=== PATIENT | female | born 1975 | race Caucasian/White ===

== ENCOUNTER → 2018-01-18 10:32 | Outpatient (CLI) | payer BC, SELFPAY | PROVIDERS: Family Provider Family Medicine; PCP Family Medicine; Visit Provider Nurse Practitioner Women's Health | DX: Z12.31 Encounter for screening mammogram for malignant neoplasm of breast (principal) | CPT/HCPCS: 77063; 77067 ==

== ENCOUNTER → 2018-02-02 16:15 | Outpatient (CLI) | payer BC, SELFPAY ==
[2018-02-08 08:51] LABS: HPV APTIMA, High Risk Negative (Negative)
== END ==
PROVIDERS: Family Provider Family Medicine; PCP Family Medicine; Visit Provider Nurse Practitioner Women's Health
DX: Z12.4 Encounter for screening for malignant neoplasm of cervix (principal)
CPT/HCPCS: 88175; G0145

== ENCOUNTER → 2019-02-01 12:24 | Outpatient (CLI) | payer BC, SELFPAY ==
--- NOTE | 2019-02-01 12:27 | BI_ITS ---
MAMMOGRAPHY - BILATERAL SCREENING REASON FOR EXAM: Female, 43 years old. Routine annual screening examination. PERTINENT HISTORY: Mother with breast cancer. TECHNIQUE: Digital bilateral breast khoi (3D mammographic acquisition) in the CC and MLO projections. 2-D mediolateral oblique (MLO) and craniocaudad (CC) views of both breasts were obtained. CAD: Full Field Digital Mammography with Computer Added Detection was performed. COMPARISON: Comparison is made with prior examination of January 18, 2018 and December 23, 2016. FINDINGS: Breast Composition: The breasts are heterogeneously dense, which may obscure small masses. There are no dominant masses or suspicious calcifications. No other significant abnormalities are identified. There has been no significant change since the prior study. BI/SCREEN MAMM (CAD) W/KOHI BILAT IMPRESSION: Stable bilateral screening mammogram. Yearly follow-up mammogram recommended. (A) ASSESSMENT CATEGORY: BIRADS Category 1: Negative. A letter regarding these results will be sent to the patient by the facility within 30 days. Approximately 10% of breast cancers are not detected by mammography. A normal mammogram should not delay biopsy of a clinically suspicious abnormality. [id number] Electronically Signed: Rafiq Acosta, at 15:10 EDT , Service support ,
== END ==
PROVIDERS: Family Provider Family Medicine; PCP Family Medicine; Referring Provider Nurse Practitioner Women's Health; Visit Provider Nurse Practitioner Women's Health
DX: Z12.31 Encounter for screening mammogram for malignant neoplasm of breast (principal); Z80.3 Family history of malignant neoplasm of breast
CPT/HCPCS: 77063; 77067

== ENCOUNTER → 2019-09-27 11:41 | Outpatient (CLI) | payer BC, SELFPAY ==
[2019-09-27 11:27] VITALS: BMI 28.4
[2019-09-27 11:56] LABS: Absolute Lymphocyte Count 2.38 X10^3/uL (0.83-4.51); Absolute Neutrophil Count 3.2 X10^3/uL (2.0-7.7); Basophil# 0.04 X10^3/uL; Basophil% 0.6 % (0-1); Eosinophil# 0.68 X10^3/uL; Hematocrit 42.3 % (37-47); Hemoglobin 13.9 g/dL (12.0-15.0); Lymphocyte # 2.38 X10^3/ul (4.0); Lymphocyte % 34.9 % (19-41); Mean Corp Hgb Conc 32.9 g/dL (32-36); Mean Corpuscular Hgb 29.2 pg (27.0-32.0); Mean Corpuscular Volume 88.9 fL (81-99); Mean Platelet Vol. 9.1 fl (6.2-12.0); Monocyte# 0.47 X10^3/uL; Monocyte% 6.9 % (0-10); NRBC Flagged by Analyzer 0 % (0-5); Neutrophil # 3.23 X10^3/uL (2.7-7.7); Neutrophil % 47.3 % (47-70); Platelet Count 171 K/mm3 (150-450); RBC Distribution Width CV 12.3 % (11.6-14.6); RBC Distribution Width SD 39.8 fl (35.1-43.9); Red Blood Count 4.76 M/mm3 (4.2-5.4); White Blood Count 6.8 K/mm3 (4.4-11.0)
[2019-09-27 12:56] LABS: Thyroid Stim Hormone (TSH) 1.13 uIU/mL (0.358-3.74)
== END ==
PROVIDERS: PCP Family Medicine; Referring Provider Nurse Practitioner Women's Health; Visit Provider Nurse Practitioner Women's Health
DX: N92.1 Excessive and frequent menstruation with irregular cycle (principal)
CPT/HCPCS: 36415; 84443; 85025

== ENCOUNTER → 2019-10-02 13:53 | Outpatient (CLI) | payer BC, SELFPAY ==
[2019-09-27 11:27] VITALS: BMI 28.4
--- NOTE | 2019-10-02 13:54 | US_ITS ---
STUDY: ULTRASOUND OF THE FEMALE PELVIS - COMPLETE REASON FOR EXAM: Female, 44 years old. Bleeding TECHNIQUE: Transabdominal and Transvaginal TECHNICAL QUALITY: Adequate. COMPARISON: None. FINDINGS: The uterus is anteverted and is in a midline position. The uterus measures 10.0 x 7.4 x 5.9 cm. There is a nabothian cyst in the cervix. The endometrium measures 8 mm in thickness, and is hyperechoic. There is no demonstrated endometrial mass. There are 2 fibroids in the uterus, measuring 3.9 x 3.4 x 2.5 cm and 1.3 x 1.2 x 1.2 cm. The right ovary is visualized. The right ovary measures 2.9 x 2.4 x 1.30 cm. There is a 2.0 x 1.8 cm cyst in the right ovary. There is no visualized right adnexal mass or complex lesion. There is normal arterial and normal venous vascularity. The left ovary is visualized. The left ovary measures 3.6 x 3.5 x 2.2 cm. There is no left ovarian cyst or ovarian mass. There is no visualized left adnexal mass or complex lesion. There is normal arterial and normal venous vascularity. There is no fluid in the cul-de-sac. US/Transvaginal Non- IMPRESSION: 2 fibroids in the uterus with the larger measuring 3.9 cm. 2.0 cm simple cyst in the right ovary. Otherwise, unremarkable pelvic ultrasound. Electronically Signed: Lorenzo Liz, at 16:46 EDT Tel , Service support ,
--- NOTE | 2019-10-02 13:54 | US_ITS ---
STUDY: ULTRASOUND OF THE FEMALE PELVIS - COMPLETE REASON FOR EXAM: Female, 44 years old. Bleeding TECHNIQUE: Transabdominal and Transvaginal TECHNICAL QUALITY: Adequate. COMPARISON: None. FINDINGS: The uterus is anteverted and is in a midline position. The uterus measures 10.0 x 7.4 x 5.9 cm. There is a nabothian cyst in the cervix. The endometrium measures 8 mm in thickness, and is hyperechoic. There is no demonstrated endometrial mass. There are 2 fibroids in the uterus, measuring 3.9 x 3.4 x 2.5 cm and 1.3 x 1.2 x 1.2 cm. The right ovary is visualized. The right ovary measures 2.9 x 2.4 x 1.30 cm. There is a 2.0 x 1.8 cm cyst in the right ovary. There is no visualized right adnexal mass or complex lesion. There is normal arterial and normal venous vascularity. The left ovary is visualized. The left ovary measures 3.6 x 3.5 x 2.2 cm. There is no left ovarian cyst or ovarian mass. There is no visualized left adnexal mass or complex lesion. There is normal arterial and normal venous vascularity. There is no fluid in the cul-de-sac. US/Pelvic (Non ) IMPRESSION: 2 fibroids in the uterus with the larger measuring 3.9 cm. 2.0 cm simple cyst in the right ovary. Otherwise, unremarkable pelvic ultrasound. Electronically Signed: Lorenzo Liz, at 16:46 EDT Tel , Service support ,
== END ==
PROVIDERS: PCP Family Medicine; Visit Provider Nurse Practitioner Women's Health
DX: N92.1 Excessive and frequent menstruation with irregular cycle (principal)
CPT/HCPCS: 76830; 76856

== ENCOUNTER → 2019-10-04 15:00 | Outpatient (CLI) | payer BC, SELFPAY ==
--- NOTE | 2019-10-04 | EMB_PTH ---
PATIENT: LUIS M PIZARRO LOC: [facility] U#:[id number] AGE/SX: 50/F ROOM: RE10/04/[address]: MIKE Arreola : 1975 BED: DIS: SPEC #: [id number] RECD: 10/04/19 15:08 STATUS: ROMULO AURELIA #: [id number] NOA: 10/04/19 00:[address]: Marli Armando NP DEPT: SURGICAL PATHOLOGY RECD BY: Annette Coffey ENTERED: 10/05/19 09:06 SP TYPE: ENDOM BX/C RODOLFO DR: Dr. Rock Chand MD Tissues: Endometrium, NOS Procedures: Surgery Specimen Level IV HEADER OPERATION: Endometrial biopsy and endocervical polyp PRE-OP DIAGNOSIS: Abnormal uterine bleeding TISSUE SUBMITTED: Endometrial lining MICROSCOPIC DIAGNOSIS Endometrial biopsy: Secretory endometrium. A fragment of benign endocervical polyp. Fragments of benign endocervical mucosa. SJ:moriah 10/09/19 MICROSCOPIC DESCRIPTION Slides are reviewed. GROSS DESCRIPTION Received is one container labeled with the patient's name and not further designated. The specimen consists of multiple fragments of hemorrhagic soft tissue that in aggregate measure 3 x 2.5 x 0.2 cm. The entire specimen is submitted in one cassette. / DEBO:moriah 10/05/19 TC:5 CPT: 04930
[2019-10-04 10:58] VITALS: BMI 31.3
== END ==
PROVIDERS: PCP Family Medicine; Referring Provider Nurse Practitioner Women's Health; Visit Provider Nurse Practitioner Women's Health
DX: N93.9 Abnormal uterine and vaginal bleeding, unspecified (principal)
CPT/HCPCS: 88305

== ENCOUNTER → 2020-02-13 14:12 | Outpatient (CLI) | payer BC, SELFPAY ==
[2019-10-04 10:58] VITALS: BMI 31.3
--- NOTE | 2020-02-13 14:12 | BI_ITS ---
MAMMOGRAPHY - BILATERAL SCREENING REASON FOR EXAM: Female, 44 years old. Routine annual screening examination. PERTINENT HISTORY: Mother with breast cancer. TECHNIQUE: Digital bilateral breast khoi (3D mammographic acquisition) in the CC and MLO projections. 2-D mediolateral oblique (MLO) and craniocaudad (CC) views of both breasts were obtained. CAD: Full Field Digital Mammography with Computer Added Detection was performed. COMPARISON: Comparison is made with prior study dated 02/01/2019 and 02/12/2018. FINDINGS: Breast Composition: The breasts are heterogeneously dense, which may obscure small masses. There are no dominant masses or suspicious calcifications. Stable benign-appearing left axillary lymph nodes. No other significant abnormalities are identified. There has been no significant change since the prior study. BI/SCREEN MAMM (CAD) W/KHOI BILAT IMPRESSION: Stable bilateral screening mammogram. Yearly follow-up mammogram recommended. (A) ASSESSMENT CATEGORY: BIRADS Category 2: Benign. A letter regarding these results will be sent to the patient by the facility within 30 days. Approximately 10% of breast cancers are not detected by mammography. A normal mammogram should not delay biopsy of a clinically suspicious abnormality. [id number] Electronically Signed: Rafiq Acosta, at 15:19 EDT , Service support ,
== END ==
PROVIDERS: PCP Family Medicine; Referring Provider Nurse Practitioner Women's Health; Visit Provider Nurse Practitioner Women's Health
DX: Z12.31 Encounter for screening mammogram for malignant neoplasm of breast (principal); Z80.3 Family history of malignant neoplasm of breast
CPT/HCPCS: 77063; 77067

== ENCOUNTER → 2020-05-08 10:47 | Outpatient (CLI) | payer BC, SELFPAY ==
[2019-10-04 10:58] VITALS: BMI 31.3
[2020-05-08 12:34] LABS: Anion Gap 5 (5-15); BUN 10 mg/dL (7-18); BUN/Creat Ratio 11.3 RATIO (10-20); Calcium,Total 8.9 mg/dL (8.5-10.1); Chloride 108 mmol/L (98-107); Cholesterol 148 mg/dL (200); Creatinine, Serum 0.88 mg/dL (0.55-1.02); EST Glomerular Filtration Rate 73 mL/min (>60); Est Glom Filt Rate - Afr Amer 88 mL/min (>60); Glucose 87 mg/dL (74-106); High Density Lipoprotein 59 mg/dL; Potassium 4.2 mmol/L (3.5-5.1); Sodium Level 141 mmol/L (136-145); Triglycerides 56 mg/dL; Very Low Density Lipoprotein 11 mg/dL (5-40)
== END ==
PROVIDERS: PCP Family Medicine; Referring Provider Family Medicine; Visit Provider Family Medicine
DX: Z13.1 Encounter for screening for diabetes mellitus (principal); Z13.220 Encounter for screening for lipoid disorders
CPT/HCPCS: 36415; 80048; 80061

== ENCOUNTER 2020-08-05 05:49 | Day surgery (SDC) | payer BC, SELFPAY ==
[2020-06-25 08:53] VITALS: BMI 31.4
[2020-07-24 15:18] VITALS: BMI 30.9
--- NOTE | 2020-07-24 16:19 | PCM.HPOB.BLA ---
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 Is patient in pain?: No Allergies No Known Allergies Allergy (Verified 07/24/20 15:18) Medications escitalopram oxalate 10 mg tablet 10 mg PO DAILY 02/02/18 [History Confirmed 07/24/20] montelukast 10 mg tablet 10 mg PO QPM 02/02/18 [History Confirmed 07/24/20] Post menopausal: No Patient : No : [facility] Medical History Seasonal allergies (Chronic) Asthma (Chronic) Depression with anxiety (Acute) Surgical History S/P appendectomy (Resolved) Tubal ligation status (Resolved) Family History Mother Breast cancer Hypertension Father Myocardial infarction Hypertension Prostate cancer Social History (Updated 07/24/20 @ 16:[address] Kathy Blount MD) Smoking Status: Former smoker alcohol intake: current details: occasionally substance use type: does not use caffeine: Yes what type of physical activity do you participate in: walking frequency: 1-2 times per week seatbelt use: always do you feel safe at home: Yes additional social history: [id number] Patient is an bank accountant HPI D&C, ablation: Details: LUIS M PIZARRO is a 45 year old who presents for preop visit for hysteroscopy, D&C, endometrial ablation. Continues to have abnormal uterine bleeding. Had bleeding for 3 weeks followed by 2 weeks off followed by two additional weeks. Pregancy History 2 Elective abortions Hx Para 2 Spontaneous abortions Hx # Term Pregnancies Ectopic pregnancies Hx # Pregnancies Multiple births # of living children Past Pregnancies Del. Date Name GA/Weeks Outcome Route Bth Weight Gen Labor Lgth Anesthesia Del Locatn Provider FOB Unknown Citlali-1996 Unknown Dany-1998 ROS Const Constitutional: Reports system reviewed and no additional complaints, except as docu; denies chills or fever(s) Eyes Eyes: Reports system reviewed and no additional complaints, except as docu ENT ENT: Reports system reviewed and no additional complaints, except as docu Cardio Card: Reports system reviewed and no additional complaints, except as docu; denies chest pain, leg swelling or rapid, pounding, or irregular heartbeat Resp Resp: Reports system reviewed and no additional complaints, except as docu; denies dyspnea GI GI: Reports system reviewed and no additional complaints, except as docu; denies constipation, nausea or vomiting : Reports system reviewed and no additional complaints, except as docu; denies painful urination, pelvic pain, urinary frequency, urinary hesitancy, urinary urgency, vaginal discharge, vaginal odor or vaginal itching Musc Musc: Reports system reviewed and no additional complaints, except as docu Skin Skin/Breast: Reports system reviewed and no additional complaints, except as docu Neuro Neuro: Reports system reviewed and no additional complaints, except as docu Psych Psych: Reports system reviewed and no additional complaints, except as docu Endo Endo: Reports system reviewed and no additional complaints, except as docu Exam Const General: cooperative, healthy appearing, comfortable, well developed, well groomed Orientation: alert, awake, oriented x3 Neck Neck: normal visual inspection, full ROM Resp Effort & Inspection: normal respiratory effort, able to speak in complete sentences, symmetric chest movement Cardio Rate: regular rate Skin General: no rashes or lesions noted, elasticity normal, turgor normal Lesions: no lesions Rashes: no rashes Neuro General: alert, awake, oriented x3 Cranial Nerves: CN's II-XI intact bilaterally, PERRL, EOM intact bilaterally Cognition: normal cognition Speech: speech normal Gait: normal gait Extrem General: normal to inspection, full ROM, no pedal edema Psych Appearance: grossly normal Mental Status: mental status grossly normal Mood: congruent mood Affect: normal affect Speech and Movement: speech and movement normal Attitude: cooperative Thought Process: normal Thought Content: normal Assessment & Plan 1. Abnormal uterine bleeding (AUB) N93.9 Plan Presents for preop visit for endometrial ablation. Surgical consent reviewed with patient at prior visit. Denies further questions or concerns. Reviewed postop precautions and expectations. Reviewed past medical history and review of systems to ensure up-to-date. Consent signed with patient in the office for hysteroscopy, dilation and curettage, endometrial ablation.
[2020-08-05 06:27] VITALS: BP 119/73; PULSE 67; RESP 16; TEMP 36.7; O2SAT 96; BMI 31.6
[2020-08-05] MEDS: Lactated Ringers 1,000 ML 100 ML IV (06:44)
[2020-08-05 06:55] LABS: Hematocrit 43.1 % (37-47); Hemoglobin 14.1 g/dL (12.0-15.0); Mean Corp Hgb Conc 32.7 g/dL (32-36); Mean Corpuscular Volume 85.5 fL (81-99); Mean Platelet Vol. 9.8 fl (6.2-12.0); Platelet Count 164 K/mm3 (150-450); RBC Distribution Width CV 13.1 % (11.6-14.6); RBC Distribution Width SD 39.7 fl (35.1-43.9); Red Blood Count 5.04 M/mm3 (4.2-5.4); White Blood Count 4.9 K/mm3 (4.4-11.0)
--- NOTE | 2020-08-05 07:23 | DCINST_ITS ---
Discharge Diet: No Restrictions Discharge Activity: Return to Normal Activity, May Shower, May Take a Tub Bath - in 2 weeks. Allergies/Adverse Reactions: Allergies No Known Allergies Allergy (Verified 07/29/20 09:27) Medications to take at Discharge escitalopram oxalate 10 mg tablet 10 mg PO QHS 02/02/18 montelukast 10 mg tablet 10 mg PO QPM 02/02/18 Albuterol IH (ProAir) [Proair Hfa] 1 - 2 puff INHALATION Q6H PRN PRN 07/29/20 Ibuprofen [Motrin] 800 mg PO Q8H PRN PRN #60 tablet 08/05/20 The following prescriptions were given: Ibuprofen [Motrin] 800 mg PO Q8H PRN PRN #60 tablet PRN Reason: Pain Score 1-5 Transmission Status: Pending to [facility] Primary Care Physician: Titi Blount MD [Primary Care Provider] - Test Results: Test results from this visit will be discussed in further detail at your follow- up appointment, if applicable.
--- NOTE | 2020-08-05 07:30 | EMB_PTH ---
PATIENT: LUIS M PIZARRO LOC: [facility] [place] U#:[id number] AGE/SX: 45/F ROOM: RE08/05/[address]: Dr. Kathy Blount MD : 1975 BED: DIS: 08/05/2020 SPEC #: [id number] RECD: 08/05/20 12:29 STATUS: ROMULO MOSES #: [id number] NOA: 08/05/20 07:[address]: Kathy Blount DEPT: SURGICAL PATHOLOGY RECD BY: Yeny Savage ENTERED: 08/05/20 13:09 SP TYPE: ENDOM BX/C OTHR DR: Dr. Titi Blount MD Tissues: Endometrium, NOS Procedures: Surgery Specimen Level IV HEADER OPERATION: Hysteroscopy, D & C, endometrial ablation PRE-OP DIAGNOSIS: Abnormal uterine bleeding TISSUE SUBMITTED: Endometrial curettings MICROSCOPIC DIAGNOSIS Endometrium, curettings: Simple hyperplasia without atypia. AM:moriah 08/06/2020 COMMENT Case has been reviewed in consultation with Dr. Anna who concurs with the above diagnosis. IDC:DEBO MICROSCOPIC DESCRIPTION Slides are reviewed. GROSS DESCRIPTION Received in fixative is one container labeled with the patient's name and designated endometrial curettings. The specimen consists of multiple fragments of pink hemorrhagic soft tissue that in aggregate measure 7.5 x 3 x 0.3 cm. The specimen is totally submitted in three cassettes. / DEBO:moriah 08/05/20 TC:5 CPT: 21741
[2020-08-05] MEDS: Lidocaine 1% (30 ml sdv) 30 ML Vial (07:48)
[2020-08-05] MEDS: Lubricating Jelly 60 GM Tube 30 GM TOPICAL (07:48)
[2020-08-05 08:10] VITALS: BP 107/65; BP 119/73; PULSE 73; RESP 16; TEMP 36.4; O2SAT 93
--- NOTE | 2020-08-05 08:14 | OP.PCM_ITS ---
Problem List (1) Abnormal uterine bleeding (AUB) Status: Acute Report of Operation Date of Procedure: 08/05/20 Pre-Operative Diagnosis: Abnormal uterine bleeding Post-Operative Diagnosis: Same Surgery/Procedure Performed:: Hysteroscopy, D&C, endometrial ablation Description of Surgical Findings:: Uterus with polypoid appearing tissue. Normal-appearing uterine cavity. Normal cervix. associate director regulatory affairs: None Type of Anesthesia:: Local MAC Special Medications: 1% lidocaine Specimen's removed: Endometrial curettings Drains: Straight cath Estimated Blood Loss (mL): 10 Description of Procedure: Patient was taken to the operating where anesthesia with difficulty. She was prepped and draped in the dorsolithotomy position with yellowfin stirrups. A weighted speculum was placed in the posterior aspect of the vagina and the anterior lip of the cervix was grasped with a single-tooth tenaculum. Cervix was sequentially dilated to accommodate a 5 mm hysteroscope. The hysteroscope was introduced into the uterine cavity and the above findings were noted. The hysteroscope was then removed and a sharp curettage was performed. The total cavity length was found to be 6 cm. The Aimee device was inserted into the uterine cavity and seated within the cavity. Air was introduced to create a cervical seal and the seal was noted to be adequate. The Aimee device was activated and 2 safety checks were passed. The ablation was performed for 120 seconds. The Aimee device was removed from the uterine cavity. The tenaculum was removed and the cervix appeared hemostatic. All instruments were removed from the vagina. The patient was awakened from anesthesia and taken to recovery room in stable condition. - Complications None apparent - Admit VTE Documentation VTE Present on Admission: No VTE Mechan Device Prophylaxis: SCD's VTE Pharm Prophylaxis ordered?: No Multi Select Codes - Urinary/Genital Urinary/Genital CPT Codes: 24540 Aimee/Novasure, 57967 Hysteroscopy,EMC, Polypectomy
[2020-08-05 08:15] VITALS: BP 101/68; BP 119/73; PULSE 69; RESP 16; O2SAT 93
[2020-08-05 08:20] VITALS: BP 119/73; BP 99/67; PULSE 72; RESP 16; O2SAT 95
[2020-08-05 08:25] VITALS: BP 103/70; BP 119/73; PULSE 77; RESP 16; TEMP 36.2; O2SAT 94
[2020-08-05 09:14] VITALS: BP 119/73; BP 134/77; PULSE 65; RESP 16; TEMP 36.3; O2SAT 94
== END 2020-08-05 09:15 | disposition home or self-care (01) ==
LOC: SDC 05:50 → AC 05:50
PROVIDERS: PCP Family Medicine; Referring Provider Obstetrics & Gynecology; Visit Provider Obstetrics & Gynecology
PROC: 0U5B8ZZ Destruction of Endometrium, Via Natural or Artificial Opening Endoscopic (ICD-10-PCS; CPT 58558; principal; 2020-08-05 07:15)
DX: N93.9 Abnormal uterine and vaginal bleeding, unspecified (principal); N85.01 Benign endometrial hyperplasia; J45.909 Unspecified asthma, uncomplicated; F32.9 Major depressive disorder, single episode, unspecified; F41.9 Anxiety disorder, unspecified; Z20.822 Contact with and (suspected) exposure to COVID-19; Z87.891 Personal history of nicotine dependence
CPT/HCPCS: 00952; 58563; 85027; 86850; 86900; 86901; 87426; 88305; C9803; J7120; J2405

== ENCOUNTER → 2021-02-18 11:59 | Outpatient (CLI) | payer BC, SELFPAY ==
--- NOTE | 2021-02-18 12:03 | BI_ITS ---
MAMMOGRAPHY - BILATERAL SCREENING 3-D TOMOSYNTHESIS REASON FOR EXAM: Female, 45 years old. breast cancer screening PERTINENT HISTORY: No significant family history. TECHNIQUE: 2-D mammograms and 3-D Tomosynthesis of the breast (s) were performed. CAD was performed. COMPARISON: 02/13/2020 FINDINGS: The breast composition is heterogeneously dense that can obscure small breast masses. Scattered benign calcifications are seen. No dense spiculated masses or suspicious microcalcifications are identified. No architectural distortion is identified. There is no skin thickening or retraction. There has been no significant change since the prior study. BI/SCRN MAMM (CAD)W/KHOI BILAT IMPRESSION: No mammographic signs of malignancy. Routine yearly mammograms recommended. ASSESSMENT CATEGORY: BIRADS Category 1: Negative. A letter regarding these results will be sent to the patient by the facility within 30 days. FOLLOW UP RECOMMENDATION: Yearly follow up mammogram recommended. (A) Approximately 10% of breast cancers are not detected by mammography. A normal mammogram should not delay biopsy of a clinically suspicious abnormality. Electronically Signed: Bo Patricio MD at 13:27 EDT Tel , Service support ,
== END ==
PROVIDERS: PCP Family Medicine; Referring Provider Obstetrics & Gynecology; Visit Provider Obstetrics & Gynecology
DX: Z12.31 Encounter for screening mammogram for malignant neoplasm of breast (principal)
CPT/HCPCS: 77063; 77067

== ENCOUNTER → 2021-04-02 | Outpatient (CLI) | payer BC, SELFPAY | END | disposition home or self-care (01) | LOC: LABSPEC 04-03 09:10 | PROVIDERS: PCP Family Medicine; Visit Provider Family Medicine | DX: B34.9 Viral infection, unspecified (principal) | CPT/HCPCS: 87635; U0005; U0003 ==

== ENCOUNTER → 2021-12-09 | Outpatient (CLI) | payer BC, SELFPAY ==
[2021-12-11 22:07] LABS: Chlamydia By Nucleic Acid AMP Negative (Negative)
[2021-12-11 22:40] LABS: Gonococcus By Nucleic Acid AMP Negative (Negative)
== END | disposition home or self-care (01) ==
LOC: LABSPEC 12-10 08:18
PROVIDERS: Visit Provider Nurse Practitioner Women's Health
DX: N76.0 Acute vaginitis (principal); Z11.3 Encounter for screening for infections with a predominantly sexual mode of transmission
CPT/HCPCS: 87070; 87205; 87491; 87591

== ENCOUNTER → 2022-02-18 | Outpatient (CLI) | payer BC, SELFPAY ==
--- NOTE | 2022-02-18 10:39 | BI_ITS ---
MAMMOGRAPHY - BILATERAL SCREENING REASON FOR EXAM: Female, 46 years old. Routine annual screening examination. PERTINENT HISTORY: Mother with breast cancer. TECHNIQUE: Digital bilateral breast khoi (3D mammographic acquisition) in the CC and MLO projections. 2-D mediolateral oblique (MLO) and craniocaudad (CC) views of both breasts were obtained. CAD: Full Field Digital Mammography with Computer Added Detection was performed. COMPARISON: Comparison is made with prior study dated 02/18/2021 and 02/13/2020. FINDINGS: Breast Composition: The breasts are heterogeneously dense, which may obscure small masses. There are no dominant masses or suspicious calcifications. Stable small benign appearing bilateral axillary lymph nodes. No other significant abnormalities are identified. There has been no significant change since the prior study. BI/SCRN MAMM (CAD)W/KHIO BILAT IMPRESSION: Stable bilateral screening mammogram. Yearly follow-up mammogram recommended. (A) ASSESSMENT CATEGORY: BIRADS Category 2: Benign. A letter regarding these results will be sent to the patient by the facility within 30 days. Approximately 10% of breast cancers are not detected by mammography. A normal mammogram should not delay biopsy of a clinically suspicious abnormality. [id number] Electronically Signed: Rafiq Acosta MD at 12:35 EDT ,
== END | disposition home or self-care (01) ==
LOC: OPBI 10:38
PROVIDERS: Visit Provider Nurse Practitioner Women's Health
DX: Z12.31 Encounter for screening mammogram for malignant neoplasm of breast (principal); Z80.3 Family history of malignant neoplasm of breast
CPT/HCPCS: 77063; 77067

== ENCOUNTER → 2022-06-16 | Outpatient (CLI) | payer BC, SELFPAY ==
[2022-06-16 12:32] LABS: Absolute Lymphocyte Count 1.59 X10^3/uL (0.83-4.51); Absolute Neutrophil Count 3.2 X10^3/uL (2.0-7.7); Basophil# 0.03 X10^3/uL; Basophil% 0.6 % (0-1); Eosinophils% 1.9 % (0-5); Hematocrit 49.3 % (37-47); Hemoglobin 15.5 g/dL (12.0-15.0); Lymphocyte # 1.59 X10^3/ul (0.83-4.51); Lymphocyte % 30.2 % (19-41); Mean Corp Hgb Conc 31.4 g/dL (32-36); Mean Corpuscular Hgb 27.1 pg (27.0-32.0); Mean Corpuscular Volume 86.2 fL (81-99); Mean Platelet Vol. 9.9 fl (6.2-12.0); Monocyte# 0.35 X10^3/uL; Monocyte% 6.6 % (0-10); NRBC Flagged by Analyzer 0 % (0-5); Neutrophil # 3.19 X10^3/uL (2.7-7.7); Neutrophil % 60.5 % (47-70); Platelet Count 227 K/mm3 (150-450); RBC Distribution Width CV 12.3 % (11.6-14.6); RBC Distribution Width SD 38.6 fl (35.1-43.9); Red Blood Count 5.72 M/mm3 (4.2-5.4); White Blood Count 5.3 K/mm3 (4.4-11.0)
[2022-06-16 12:52] LABS: ALB/GLOB Ratio 1.1 RATIO (0.9-2.4); AST(SGOT) 17 U/L (15-37); Alanine Aminotransfer ALT/SGPT 18 U/L (13-56); Alkaline Phosphatase 83 U/L (45-117); Anion Gap 7 (5-15); BUN 12 mg/dL (7-18); BUN/Creat Ratio 12.2 RATIO (10-20); Calcium,Total 9.3 mg/dL (8.5-10.1); Chloride 105 mmol/L (98-107); Cholesterol 169 mg/dL (200); Creatinine, Serum 0.98 mg/dL (0.55-1.02); EST Glomerular Filtration Rate 64 mL/min (>60); Est Glom Filt Rate - Afr Amer 77 mL/min (>60); Globulin 3.8 g/dL (2.2-4.2); Glucose 101 mg/dL (74-106); High Density Lipoprotein 70 mg/dL; Potassium 4.5 mmol/L (3.5-5.1); Protein, Total 7.8 g/dL (6.4-8.2); Sodium Level 140 mmol/L (136-145); Thyroid Stim Hormone (TSH) 0.69 uIU/mL (0.358-3.74); Triglycerides 71 mg/dL; Very Low Density Lipoprotein 14 mg/dL (5-40)
[2022-06-16 13:21] LABS: Hemoglobin A1c 5.7 % (3.8-5.6)
== END | disposition home or self-care (01) ==
LOC: MTLAB 09:58
PROVIDERS: Family Medicine; PCP Pediatrics; Referring Provider Pediatrics; Visit Provider Pediatrics
DX: Z13.0 Encounter for screening for diseases of the blood and blood-forming organs and certain disorders involving the immune mechanism (principal); Z13.29 Encounter for screening for other suspected endocrine disorder; Z13.220 Encounter for screening for lipoid disorders
CPT/HCPCS: 36415; 80053; 80061; 83036; 84443; 85025

== ENCOUNTER → 2023-02-24 | Outpatient (CLI) | payer BC, SELFPAY ==
--- NOTE | 2023-02-24 10:42 | BI_ITS ---
MAMMOGRAPHY - BILATERAL SCREENING REASON FOR EXAM: Female, 47 years old. Routine annual screening examination. PERTINENT HISTORY: Mother with breast cancer. TECHNIQUE: Digital bilateral breast khoi (3D mammographic acquisition) in the CC and MLO projections. 2-D mediolateral oblique (MLO) and craniocaudad (CC) views of both breasts were obtained. CAD: Full Field Digital Mammography with Computer Added Detection was performed. COMPARISON: Comparison is made with prior examination February 18, 2022 and February 18, 2021. FINDINGS: Breast Composition: The breasts are heterogeneously dense, which may obscure small masses. There are no dominant masses or suspicious calcifications. Stable appearance of the small benign-appearing bilateral axillary lymph nodes. No other significant abnormalities are identified. There has been no significant change since the prior study. BI/SCRN MAMM (CAD)W/KHOI BILAT IMPRESSION: Stable bilateral screening mammogram. Yearly follow-up mammogram recommended. (A) ASSESSMENT CATEGORY: BIRADS Category 2: Benign. A letter regarding these results will be sent to the patient by the facility within 30 days. Approximately 10% of breast cancers are not detected by mammography. A normal mammogram should not delay biopsy of a clinically suspicious abnormality. [id number] Electronically Signed: Rafiq Acosta MD at 13:32 EDT ,
== END | disposition home or self-care (01) ==
LOC: OPBI 10:42
PROVIDERS: PCP Pediatrics; Referring Provider Nurse Practitioner Women's Health; Visit Provider Nurse Practitioner Women's Health
DX: Z12.31 Encounter for screening mammogram for malignant neoplasm of breast (principal); Z80.3 Family history of malignant neoplasm of breast
CPT/HCPCS: 77063; 77067

== ENCOUNTER → 2023-03-10 | Outpatient (CLI) | payer BC, SELFPAY ==
[2023-03-15 12:09] LABS: HPV APTIMA, High Risk Negative (Negative)
== END | disposition home or self-care (01) ==
PROVIDERS: PCP Family Medicine; Referring Provider Nurse Practitioner Women's Health; Visit Provider Nurse Practitioner Women's Health
DX: Z12.11 Encounter for screening for malignant neoplasm of colon (principal); Z80.0 Family history of malignant neoplasm of digestive organs
CPT/HCPCS: 87624; 88175; G0145

== ENCOUNTER → 2024-03-01 | Outpatient (CLI) | payer BC, SELFPAY ==
--- NOTE | 2024-03-01 12:03 | BI_ITS ---
MAMMOGRAPHY - BILATERAL SCREENING 3-D TOMOSYNTHESIS REASON FOR EXAM: Female, 48 years old. screening PERTINENT HISTORY: No significant family history. TECHNIQUE: 2-D mammograms and 3-D Tomosynthesis of the breast (s) were performed. CAD was performed. COMPARISON: 02/24/2023 FINDINGS: The breast composition is heterogeneously dense that can obscure small breast masses. Scattered benign calcifications are seen. No dense spiculated masses or suspicious microcalcifications are identified. No architectural distortion is identified. There is no skin thickening or retraction. There has been no significant change since the prior study. BI/SCRN MAMM (CAD)W/KHOI BILAT IMPRESSION: No mammographic signs of malignancy. Routine yearly mammograms recommended. ASSESSMENT CATEGORY: BIRADS Category 1: Negative. A letter regarding these results will be sent to the patient by the facility within 30 days. FOLLOW UP RECOMMENDATION: Yearly follow up mammogram recommended. (A) Approximately 10% of breast cancers are not detected by mammography. A normal mammogram should not delay biopsy of a clinically suspicious abnormality. Electronically Signed: Bo Patricio MD at 13:15 EDT ,
== END | disposition home or self-care (01) ==
LOC: OPBI 12:03
PROVIDERS: PCP Family Medicine; Referring Provider Nurse Practitioner Women's Health; Visit Provider Nurse Practitioner Women's Health
DX: Z12.31 Encounter for screening mammogram for malignant neoplasm of breast (principal)
CPT/HCPCS: 77063; 77067

== ENCOUNTER → 2024-03-13 | Outpatient (CLI) | payer BC, SELFPAY ==
[2024-03-13 17:29] LABS: Estradiol < 11.0 pg/mL
--- OUTSIDE RECORDS SUMMARY | 2024-03-13 19:56 | XMS RPT_ITS | CCD ---
Author Organization [facility] Care Team Providers Care Compass Operator Name Role Phone Prabha BISHOP, Marli Jasso Unavailable Ming JIMENEZ, Tiki Katz Unavailable [phone] Medications Completed/Discontinued Medications Medication Drug Class(es) Dates Sig (Normalized) Sig (Original) escitalopram 10 mg oral tablet (2 sources) Serotonin Reuptake Inhibitor Start: 12-15-2016 take 1 tablet by mouth once daily LEXAPRO 10 MG TABS One tablet by mouth daily ESCITALOPRAM OXALATE [id number] Marli Armando [employer] montelukast 10 mg oral tablet (2 sources) Leukotriene Receptor Antagonist Start: 12-15-2016 take 1 tablet by mouth once daily SINGULAIR 10 MG TABS One tablet by mouth daily MONTELUKAST SODIUM [id number] Marli Armando NP Drug Treatment Unknown - unknown (1 source) No information available. norethindrone acetate 5 mg oral tablet (2 sources) Progestin Start: 12-15-2016 AYGESTIN 5 MG TABS Take 2-3 times per day to control menses starting 12/23/16 NORETHINDRONE ACETATE [id number] Marli Armando [employer] Start: 12-15-2016 AYGESTIN 5 MG TABS Take 2-3 times per day to control menses starting 12/23/16 NORETHINDRONE ACETATE [id number] Marli Armando [employer] Problems Active Problems Problem Classification Problem Date Documented Date Episodic/Chronic Unclassified (1 source) Gynecologic examination ; Translations: [Encounter for gynecological examination (general) (routine) without abnormal findings] Onset: 12-15-2016 12-15-2016 Unclassified (2 sources) Screening mammography ; Translations: [Encounter for screening mammogram for malignant neoplasm of breast] Onset: 12-09-2016 12-13-2016 Past or Other Problems Problem Classification Problem Date Documented Da te Episodic/Chronic Other female genital disorders (2 sources) H/O: menorrhagia; Translations: [Personal history of other diseases of the female genital tract] Onset: 12-15-2016 12-15-2016 Episodic Results Test Name Value Interpretation Reference Range Facil ity Office Visit: est annualon 0 12-15-2016 Documentation of current medications (procedure) Done Invalid Interpretation Code [facility] Fall [facility] Protein mass conc Done [facility] Tobacco smoking status NHIS Never [facility] Tobacco smoking status NHIS Never smoker [facility] Tobacco use [facility] Never smoker Invalid Interpretation Code [facility] Vital Signs Date Time Vital Sign Value Performing Clinician Facility 12-15-2016 08:41-0400 BMI (Body Mass Index) 28.52 kg/m2 Marli Armando NP [facility] 12-15-2016 08:41-0400 Body Temperature 98.4 [degF] Marli Armando NP [facility] 12-15-2016 08:41-0400 BP Diastolic 78 mm[Hg] Marli Armando NP [facility] 12-15-2016 08:41-0400 BP Systolic 117 mm[Hg] Marli Armando NP [facility] 12-15-2016 08:41-0400 Height 165.1 cm Marli Armando NP [facility] 12-15-2016 08:41-0400 Pulse (Heart Rate) 69 /min Marli Armando NP [facility] 12-15-2016 08:41-0400 Respiratory Rate 16 /min Marli Armando NP [facility] 12-15-2016 08:41-0400 Weight 77.75 kg Marli Armando NP [facility] Procedures Date Procedure Procedure Detail Performing Clinician Start: 12-15-2016 Gynecologic examination Routine gynecological exam Tiki Lai MD Start: 12-09-2016 Screening mammography Mammogram yearly screening Tiki Lai MD Plan of Treatment Date Care Activity Detail Author Start: 12-15-2016 End: 12-15-2016 Appointment Appointment [facility] Start: 12-09-2016 End: 12-13-2016 Mammogram, screening Mammogram, Screening, both breasts [facility] Additional Source Comments FOR RECORDS PERTAINING TO PATIENTS WHO ARE OR HAVE BEEN ENROLLED IN A CHEMICAL DEPENDENCY/SUBSTANCEABUSE PROGRAM, SOME INFORMATION MAY BE OMITTED. This clinical summary was aggregated from multiple sources. Caution should be exercised in using it in the provision of clinical care. This summary normalizes information from multiple sources, and as a consequence, information in this document may materially change the coding, format and clinical context of patient data. In addition, data may be omitted in some cases. CLINICAL DECISIONS SHOULD BE BASED ON THE PRIMARY CLINICAL RECORDS. [facility] [employer] [facility]. provides no warranty or guarantee of the accuracy or completeness of information in this document.
== END | disposition home or self-care (01) ==
LOC: WOBLAB 15:48
PROVIDERS: PCP Family Medicine; Referring Provider Nurse Practitioner Women's Health; Visit Provider Nurse Practitioner Women's Health
DX: N85.01 Benign endometrial hyperplasia (principal)
CPT/HCPCS: 36415; 82670; 83001

== ENCOUNTER → 2024-07-20 | Outpatient (CLI) | payer OTHER, SELFPAY ==
[2024-07-20 11:00] LABS: Hemoglobin A1c 5.9 % (<=5.6)
[2024-07-20 11:07] LABS: ALB/GLOB Ratio 1.6 RATIO (0.9-2.4); AST(SGOT) 22 U/L (<=31); Alanine Aminotransfer ALT/SGPT 12 U/L (<=34); Albumin, Serum 4.6 g/dL (3.5-5.0); Alkaline Phosphatase 81 U/L (35-104); Anion Gap 13 (5-15); BUN 9 mg/dL (4-19); BUN/Creat Ratio 8.3 RATIO (10-20); Calcium,Total 8.2 mg/dL (7.6-11.0); Carbon Dioxide 24.8 mmol/L (21.0-32.0); Chloride 102 mmol/L (98-108); Cholesterol 152 mg/dL (<=200); Creatinine, Serum 1.07 mg/dL (0.70-1.20); EST Glomerular Filtration Rate 63 (>60); Globulin 2.9 g/dL (2.2-4.2); Glucose 103 mg/dL (70-99); High Density Lipoprotein 63 mg/dL; Low Density Lipoprotein Calc. 75 mg/dL; Potassium 4.5 mmol/L (3.3-5.1); Protein, Total 7.4 g/dL (5.9-8.4); Sodium Level 140 mmol/L (133-145); Total Bilirubin 1.65 mg/dL (0.00-1.30); Triglycerides 72 mg/dL; Very Low Density Lipoprotein 14 mg/dL (5-40); cholesterol:hdl ratio screen 2.43
== END | disposition home or self-care (01) ==
LOC: MTLAB 08:45
PROVIDERS: PCP Family Medicine; Referring Provider Family Medicine; Visit Provider Family Medicine
DX: R73.03 Prediabetes (principal)
CPT/HCPCS: 36415; 80053; 80061; 83036

== ENCOUNTER 2024-07-25 08:08 | Day surgery (SDC) | payer OTHER, SELFPAY ==
[2024-07-25] VITALS (9 sets, daily range): BP systolic 85–112; BP diastolic 58–84; PULSE 74–88; RESP 16; TEMP 36.3–36.5; O2SAT 95–98; BMI 31.0
--- NOTE | 2024-07-25 08:27 | H&P.OPEN ---
[facility] - General General Date of Service: 07/25/24 HPI Narrative LUIS M PIZARRO, is a 49 F who presents for screening colonoscopy. Patient never had previous colonoscopy. Patient did have 2 maternal aunts with colon cancer?patient's mom did have colonoscopy. Patient has bowel movements about every 2 days denies any blood. Patient denies any chronic abdominal pain/nausea/vomiting/reflux. [facility] Medical History Depression Anxiety Alcohol use History of steroid therapy Non-smoker Hypertension Seasonal allergies Asthma Depression with anxiety Home Medications ?Medication ?Instructions ?Recorded ?Last Taken ?Type montelukast 10 mg tablet 10 mg PO QPM 02/02/18 Unknown History (Singulair) albuterol sulfate 90 mcg/actuation 1 - 2 puff inhalation Q6H PRN PRN 07/29/20 Unknown History aerosol inhaler Sob &/Or Wheezing phentermine 37.5 mg tablet 37.5 mg PO QDAY 06/11/24 07/24/24 History (Adipex-P) escitalopram oxalate 20 mg tablet 20 mg PO DAILY 07/24/24 Unknown History Allergy/AdvReac Type Severity Reaction Status Date / Time No Known Allergies Allergy Verified 07/25/24 08:19 Family History Mother Breast cancer Hypertension Father Myocardial infarction Hypertension Prostate cancer Aunt Colon cancer Aunts x2 Surgical History H/O dilation and curettage History of endometrial ablation Tubal ligation status S/P appendectomy Social History household members: spouse current occupational status: employed Smoking Status: Never smoker alcohol intake: current details: occasionally substance use type: does not use caffeine: Yes what type of physical activity do you participate in: walking frequency: 1-2 times per week seatbelt use: always do you feel safe at home: Yes additional social history: Lvwluqr-Qiv-Nfzmliozasv 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 Past Medical/Surgical History Planned Operation Planned Operative Procedure(s): Colonoscopy - Open Access S.O.S: No Previous Hospitalizations/Surgeries HX Hospitalizations: No HX of Surgeries: appendectomy as child tubal ligation dental work Any Problems With Anesthesia: No You/Your Family Experience Fever (Hyperthermia) With Anes: No Cholinesterase deficiency: No Cardiovascular Hx Chest Pain within Last 2 months: No Hx of Irregular Heartbeat and/or Afib: Yes (pvc's) Hx Heart Attack: No Hx Congestive Heart Failure: No Hx Rheumatic Fever: No Hx Hypertension: Yes (NO MEDS PRESENTLY PER PCP) Hx Internal Defibrillator: No Hx Pacemaker: No Hx Cardiac Catheterization: No Hx Cardiac Surgery/Stents/Etc.: No Hx Stress Test: No Hx Pain in Legs when Walking/Leg Cramps: No Respiratory Chronic Cough: No HX of Shortness of Breath: No Hoarseness: No Hx Chronic Obstructive Pulmonary Disease (COPD): No Hx Asthma: Yes (prn inhaler) Hx Emphysema: No Hx Sleep Apnea: No Hx Respiratory Tract Infection/Cold (presently): No Do You Snore Loudly (louder than talking or can be heard): No Do You Often Feel Tired/ Fatigued/ Sleepy Dring Daytime?: No Has Anyone Observed You Stop Breathing During Sleep?: No Result (for STOP score): Negative Hx Smoking: No Smoking Status: Never smoker Gastrointestinal Hx Gastrointestinal Disorders: No Hx Gastrointestinal Bleed: No Hx Ulcer: No Hx Hiatal Hernia: No Difficulty Chewing/Swallowing: No Special diet followed at home: No Hx Unplanned Weight Loss of 20#: No HX Unplanned Weight Gain of 20#: No Neurological Hx Seizures: No HX Syncope/Blackout Spells/Unconsciousness: No Hx Transient Ischemic Attacks (TIA): No Hx Multiple Sclerosis: No Hx Parkinson's Disease: No Hx Head/Neck Injury: No Hx Headaches: No Hx Back Injury/Pain: No Recent Onset of Speech Difficulty: No Restless Legs: No Does patient have nerve stimulator: No Blood Disorder Hx Leukemia: No Bleeding Tendencies: No Hx Deep Vein Thrombosis: No Hx High Cholesterol: No Blood Transmitted Disease: No Hx Hepatitis: No Hx Cirrhosis: No Hx Anemia: No Hx Blood Disorders: No Reproduction : No Is Patient Lactating: No Hx Hysterectomy: No Hx Tubal Ligation: Yes Are You Post Menopause: No Genitourinary Hx Renal Disease: No Musculoskeletal Hx Arthritis: No Hx Rheumatoid Arthritis: No Hx Gout: No Recent Onset of an Orthopedic Problem: No Endocrine Hx Diabetes: No Thyroid Disease: No Hx Steroid Therapy: No Psycho/Social Hx Substance Use: No Hx Alcohol Use: Yes (occ) Hx Anxiety: Yes (on med) Hx Depression: Yes (on med) Mental Illness: No Hx Dementia: No Miscellaneous Hx Cancer: No Recent Exposure to Contagious Disease: No Hx of C-Diff: No Any Loose Teeth: No Allergies No Known Allergies Allergy (Verified 07/25/24 08:19) Discharge Is Pt Admitted From a [facility], or a Custodial: No After D/C, Where Do you Plan to Go: Return Home Vital Signs Vital Signs Vital Signs: 07/25/24 08:23 07/25/24 08:23 Temperature 97.7 F L Temperature Source Temporal Pulse Rate 88 Respiratory Rate 16 Respiratory Pattern Normal Blood Pressure 112/84 H Blood Pressure Mean 93 Blood Pressure Source Monitor Blood Pressure Position Semi-Fowlers Blood Pressure Location Left Arm Pulse Ox 98 Oxygen Delivery Method Room Air Weight Weight: 180 lb 12.465 oz Body Mass Index (BMI) 31.0 Physical Exam Const alert, oriented x3 and no apparent distress HEENT normocephalic and head/scalp atraumatic Resp normal respiratory effort Cardio regular rate GI soft to palpation and non-tender; Negative for non-distended Palpation: Negative for guarding Extremity no clubbing, cyanosis or edema Skin no rashes or lesions noted Neuro CN's II-XII intact bilaterally Psych mental status grossly normal Assessment & Plan Assessment/Plan (1) Encounter for screening for malignant neoplasm of colon: Surgery Risks - Colonoscopy I discussed with the patient the risks of the procedure: Yes Risks Include but are not Limited To: Risks include but are not limited to: Bleeding, perforation requiring further surgery, inability to complete colonoscopy requiring barium enema.
--- NOTE | 2024-07-25 08:41 | PRE.ANES_ITS ---
ASA Classification* ASA Classification ASA Classification: 2 Assessment & Plan Anesthesia* Anesthesia Assessment Anesthesia Assessment: Discussed sedation and/or anesthesia options, risks, benefits, and alternatives with patient/parents/legal guardian/POA. Questions invited. The patient/parents/legal guardian/POA seems to understand and agrees to proceed with anesthesia plan. Reviewed the physical assessment, medical history, allergy history and patient home medications list prior to surgery/procedure/anesthetic and documented any changes. Performed airway and anesthesia risk assessments. Anesthesia Type Anesthesia Type: MAC Anesthesia Focused Assessment* Temperature: 97.7 F Pulse Rate: 88 Blood Pressure: 112/84 Respiratory Rate: 16 Pulse Ox: 98 Airway Assessment Mouth opens: >3 cm Mallampati Score: II Focused Labs Anesthesia Preop lab: CBC WBC 5.3 K/mm3 (4.4-11.0) 06/16/22 10:06/16/22 RBC 5.72 M/mm3 (4.2-5.4) H 06/16/22 10:06/16/22 Hgb 15.5 g/dL (12.0-15.0) H 06/16/22 10:00 3 Hct 49.3 % (37-47) H 06/16/22 10:00 06/16/22 Plt Count 227 K/mm3 (150-450) 06/16/22 10:00 06/16/22 CHEMISTRY Potassium 4.5 mmol/L (3.3-5.1) 07/20/24 08:50 07/20/24 Sodium 140 mmol/L (133-145) 07/20/24 08:50 07/20/24 BUN 9 mg/dL (4-19) 07/20/24 08:50 07/20/24 Creatinine 1.07 mg/dL (0.70-1.20) 07/20/24 08:50 07/20/24 Glucose 103 mg/dL (70-99) H 07/20/24 08:50 07/20/24 TSH 0.69 uIU/mL (0.358-3.74) 06/16/22 10:00 COAG Pre-Assessment Diagnosis/Proposed Procedure Planned Operative Procedure(s): Colonoscopy - Open Access Anesthesia History Anesthesia History - licensing coordinator: Anesthesia History - licensing coordinator Hx Hospitalization No 07/25/24 08:28 Any Problems With Anesthesia No 07/25/24 08:28 Cholinesterase deficiency No 07/25/24 08:28 You/Your Family Experience No 07/25/24 08:28 fever (hyperthermia) with Relationship Recent Exposure to Contagious No 07/25/24 08:28 Disease Does patient have nerve No 07/25/24 08:28 stimulator Patient instructed to have device shut off --Does patient have Pacemaker No 07/25/24 08:23 or ICD? When Was Last Pacemaker Check QUESTION #4 FULL TEXT: You/Your Family Experience fever (hyperthermia) with Anesthesia Last Oral Intake Last Oral intake: Last Oral Intake NPO since 05:00 07/25/24 08:23 Meds taken in AM with sips of No 07/25/24 08:23 water? Meds patient instructed to take am of surgery PONV PONV - licensing coordinator: PONV - licensing coordinator Female Yes 07/24/24 13:35 HX of Motion Sickness No 07/24/24 13:35 HX of N/V After Surgery No 07/24/24 13:35 Non-Smoker Yes 07/24/24 13:35 Duration of Surgery greater No 07/24/24 13:35 than 60 minutes Number of Risk Factors 2 07/24/24 13:35 PONV Score Moderate Risk 07/24/24 13:35 Height & Weight Height & Weight: Anesthesia: Height & Weight Height 5 ft 4 in 07/25/24 08:23 Weight: 82 kg 07/25/24 08:23 Body Mass Index (BMI) 31.0 07/25/24 08:23 Respiratory Assessment Respiratory Assessment - licensing coordinator: Respiratory Tract Infection Hx - licensing coordinator Hx Respiratory Tract Infection No 07/25/24 08:28 STOP Sleep Apnea STOP Sleep Apnea - licensing coordinator: STOP Sleep Apnea - licensing coordinator Hx Hypertension Yes: NO MEDS PRESENTLY PER 07/25/24 08:28 PCP Hx Sleep Apnea No 07/25/24 08:28 CPAP BIPAP Do you snore loudly (louder No 07/25/24 08:28 than talking or can be heard Do you often feel tired/ No 07/25/24 08:28 fatigued/ sleepy during daytime? Has anyone observed you stop No 07/25/24 08:28 breathing during sleep? STOP Results Negative 07/25/24 08:28 QUESTION #5 FULL TEXT : Do you snore loudly (louder than talking or can be heard through closed doors)? 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 Specify any problems Hx of Preganancy in last 3 No 07/24/24 13:35 Months Nurse Filling Out Transfusion VCHRISTIN 07/24/24 13:35 & Questions: Date: 07/24/24 07/24/24 13:35 Time: 13:36 07/24/24 13:35 Patient unable to answer at this time (ie. confused, unrespo /Reproduction History /Reproductive History - licensing coordinator: /Reproductive Hx- licensing coordinator Hx Now No 07/25/24 08:28 Gestational Age (in weeks): EDC: Hx Hx Para Hx Section SAB No 07/24/24 13:35 PFSH Medical History Depression Anxiety Alcohol use History of steroid therapy Non-smoker Hypertension Seasonal allergies Asthma Depression with anxiety Home Medications ?Medication ?Instructions ?Recorded ?Last Taken ?Type montelukast 10 mg tablet 10 mg PO QPM 02/02/18 Unknow n History (Singulair) albuterol sulfate 90 mcg/actuation 1 - 2 puff inhalati on Q6H PRN PRN 07/29/20 Unknown History aerosol inhaler Sob &/Or Wheezing phentermine 37.5 mg tablet 37.5 mg PO QDAY 06/11/24 History (Adipex-P) escitalopram oxalate 20 mg tablet 20 mg PO DAILY 03/11 /25 Unknown History Allergy/AdvReac Type Severity Reaction Status Date / Time No Known Allergies Allergy Verified 07/25/24 08:19 Family History Mother Breast cancer Hypertension Father Myocardial infarction Hypertension Prostate cancer Aunt Colon cancer Aunts x2 Surgical History H/O dilation and curettage History of endometrial ablation Tubal ligation status S/P appendectomy Social History household members: spouse current occupational status: employed Smoking Status: Never smoker alcohol intake: current details: occasionally substance use type: does not use caffeine: Yes what type of physical activity do you participate in: walking frequency: 1-2 times per week seatbelt use: always do you feel safe at home: Yes additional social history: Nrwruxl-Ejd-Bvodlxadedw 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
--- NOTE | 2024-07-25 09:30 | COLBX_PTH ---
PATIENT: LUIS M PIZARRO LOC: EN U#:[id number] AGE/SX: 49/F ROOM: RE07/25/[address]: Dr. Lizy Capps MD : 1975 BED: DIS: 07/25/2024 SPEC #: [id number] RECD: 07/25/24 12:11 STATUS: ROMULO AURELIA #: [id number] NOA: 07/25/24 09:[address]: Lizy Capps DEPT: SURGICAL PATHOLOGY RECD BY: Annette Coffey ENTERED: 07/25/24 13:04 SP TYPE: COLON BX OTHR DR: Jesica Keyes MD Tissues: Transverse colon Procedures: Surgery Specimen Level IV HEADER OPERATION: Colonoscopy PRE-OP DIAGNOSIS: Encounter for screening malignant neoplasm of colon TISSUE SUBMITTED: Transverse colon biopsy MICROSCOPIC DIAGNOSIS Transverse colon, biopsy: * Colonic mucosa with small mucosal lymphoid aggregate and prolapse features (deeper sections examined). MICROSCOPIC DESCRIPTION Slides are reviewed. GROSS DESCRIPTION Received in fixative is one container labeled with the patient's name and designated Transverse colon biopsy. The specimen consists of one irregular fragment of light cyr soft tissue that measures 0.3 x 0.3 x 0.1 cm. The specimen is totally submitted in one cassette. 07/25/2024 CPT:53647
--- NOTE | 2024-07-25 11:17 | OP.COLON_ITS ---
Patient Name: Viki Valenzuela Procedure Date: 07/25/2024 10:33 AM Date of : 1975 Age: 49 Procedure: Colonoscopy Indications: Screening for colorectal malignant neoplasm Providers: Lizy Capps MD Referring MD: Jesica Keyes Md Medicines: Monitored Anesthesia Care Patient Profile: This is a 49 year old female. Last Colonoscopy: none. The patient's first colonoscopy is today. Complications: No immediate complications. Procedure: Pre-Anesthesia Assessment: - Prior to the procedure, a History and Physical was performed, and patient medications and allergies were reviewed. The patient's tolerance of previous anesthesia was also reviewed. The risks and benefits of the procedure and the sedation options and risks were discussed with the patient. All questions were answered, and informed consent was obtained. Prior Anticoagulants: The patient has taken no anticoagulant or antiplatelet agents. ASA Grade Assessment: Per anesthesia. After reviewing the risks and benefits, the patient was deemed in satisfactory condition to undergo the procedure. After I obtained informed consent, the scope was passed under direct vision. Throughout the procedure, the patient's blood pressure, pulse, and oxygen saturations were monitored continuously. The Colonoscope was introduced through the anus and advanced to the cecum, identified by the appendiceal orifice, ileocecal valve and palpation. The colonoscopy was technically difficult and complex due to a tortuous colon. The patient tolerated the procedure well. The quality of the bowel preparation was good. Scope In: 10:41:24 AM Scope Withdrawal Time 0 hours 12 minutes 16 seconds Scope Out: 11:10:41 AM Total Procedure Duration Time 0 hours 29 minutes 17 seconds Findings: The perianal and digital rectal examinations were normal. A localized area of mildly whitish mucosa was found in the transverse colon. Biopsies were taken with a cold forceps for histology. The exam was otherwise without abnormality on direct and retroflexion views. Impression: - Whitish mucosa in the transverse colon. Biopsied. - The examination was otherwise normal on direct and retroflexion views. Recommendation: - Discharge patient to home. - Resume previous diet. - Continue present medications. - Await pathology results. - Repeat colonoscopy in 5-10 years for surveillance based on pathology results. Procedure Code(s): --- Professional --- 32656, PT, Colonoscopy, flexible; with biopsy, single or multiple Diagnosis Code(s): --- Professional --- Z12.11, Encounter for screening for malignant neoplasm of colon CPT copyright 2021 [employer]. All rights reserved. The codes documented in this report are preliminary and upon shank inspector review may be revised to meet current compliance requirements. MD Lizy Mueller MD 07/25/2024 11:16:02 AM This report has been signed electronically. Number of Addenda: 0 Note Initiated On: 07/25/2024 10:33 AM
--- NOTE | 2024-07-25 11:17 | OP.CCLET_ITS ---
07/25/2024 Jesica Keyes Md Re : Colonoscopy procedure for Viki Valenzuela Dear Wali This procedure was performed on Thursday, July 25, 2024. My impressions and recommendations are as follows: Impressions : - Whitish mucosa in the transverse colon. Biopsied. - The examination was otherwise normal on direct and retroflexion views. Recommendations : - Discharge patient to home. - Resume previous diet. - Continue present medications. - Await pathology results. - Repeat colonoscopy in 5-10 years for surveillance based on pathology results. My findings are described in the full procedure note, which is enclosed. If I can be of further assistance, please feel free to contact me at Doctor phone number(s): , Work: . Sincerely, MD Lizy Mueller MD 07/25/2024 11:16:02 AM This report has been signed electronically.
--- NOTE | 2024-07-25 11:22 | PCM.POST.ANE ---
Anesthesia: Postop Eval I Current Vital Signs Temperature: 97.3 F Pulse Rate: 74 Blood Pressure: 85/58 Respiratory Rate: 16 Pulse Ox: 96 Oxygen Delivery Method: Room Air Assessment Airway patent: Yes Spontaneous unlabored respirations: Yes Mental status: Awake and Calm nausea: No Vomiting: No Anesthesia Complication: No Fluid Hydration Crystalloid volume administer (ml): 80 Total IV fluid infused: 80 Progress Note Anesthesia document: Postop Eval 1 completed: Yes
--- NOTE | 2024-07-25 12:55 | PCM.POSTANE2 ---
Anesthesia Postop Eval I Sum Postop Eval Completion status Anesthesia document: Postop Eval 1 completed: Yes Anesthesia Postop Eval I Summary Anesthesia Postop Eval I Summary: Anesthesia Postop Eval I: Assessment Summary Airway patent Yes 07/25/24 11:24 [email or web address] Spontaneous unlabored Yes 07/25/24 11:24 [email or web address] respirations Mental status Awake,Calm 07/25/24 11:24 [email or web address] nausea No 07/25/24 11:24 [email or web address] Vomiting No 07/25/24 11:24 [email or web address] Anesthesia Postop Eval I: Fluid Summary Crystalloid volume administer 80 07/25/24 11:24 [email or web address] (ml) Colloids volume administered ( ml) Blood Product volume administered (ml) Total IV fluid infused 80 07/25/24 11:24 [email or web address] Anesthesia Postop Eval I: Summary Notes Anesthesia Complication No 07/25/24 11:24 [email or web address] Anesthesia Complication Comment: Post-operative progress note Anesthesia: Postop Eval II Evaluation Mental status: Awake Pain Level: 0 nausea: No Vomiting: No
== END 2024-07-25 12:01 | disposition home or self-care (01) ==
LOC: EN 08:08 → AC 08:10
PROVIDERS: PCP Family Medicine; Referring Provider Family Medicine; Visit Provider Surgery
PROC: 0DJD8ZZ Inspection of Lower Intestinal Tract, Via Natural or Artificial Opening Endoscopic (ICD-10-PCS; CPT 45378; principal; 2024-07-25 09:25)
DX: Z12.11 Encounter for screening for malignant neoplasm of colon (principal); I10 Essential (primary) hypertension; Z80.0 Family history of malignant neoplasm of digestive organs; F41.8 Other specified anxiety disorders; Z79.899 Other long term (current) drug therapy; Z98.51 Tubal ligation status; Z90.49 Acquired absence of other specified parts of digestive tract; K63.89 Other specified diseases of intestine
CPT/HCPCS: 45380; 88305; A4216; J2405

== ENCOUNTER → 2025-03-13 | Outpatient (CLI) | payer OTHER, SELFPAY ==
--- NOTE | 2025-03-13 12:45 | BI_ITS ---
EXAM: BI/SCRN MAMM (CAD)W/KHOI BILAT
== END | disposition home or self-care (01) ==
LOC: OPBI 12:42
PROVIDERS: PCP Family Medicine; Referring Provider Nurse Practitioner Women's Health; Visit Provider Nurse Practitioner Women's Health
DX: Z12.31 Encounter for screening mammogram for malignant neoplasm of breast (principal)
CPT/HCPCS: 77063; 77067

== ENCOUNTER → 2025-04-05 | Outpatient (CLI) | payer OTHER, SELFPAY | END | disposition home or self-care (01) | LOC: LABSPEC 11:07 | PROVIDERS: PCP Family Medicine; Visit Provider Family Medicine | DX: N39.0 Urinary tract infection, site not specified (principal) | CPT/HCPCS: 87077; 87086; 87088; 87186 ==